=== PATIENT | female | born 1995 | race Caucasian/White ===

== ENCOUNTER 2019-10-02 17:36 | Emergency (ER) | payer OTHER, SELFPAY ==
--- NOTE | ~2019-10-02 | XR_ITS ---
XR finger 3rd LT min 2V DATE: 10/02/2019 18:50 INDICATION: Laceration of distal third digit TECHNIQUE: 3 views COMPARISON: None FINDINGS: No fracture or dislocation, periosteal reaction or bone destruction or abnormal soft tissue calcification or subcutaneous emphysema. Joint spaces are preserved. IMPRESSION: Negative Reviewed, dictated and finalized at location A. IMPRESSION: Negative
[2019-10-02 17:37] VITALS: BP 156/117; PULSE 82; RESP 18; TEMP 36.8; O2SAT 100
--- NOTE | 2019-10-02 18:45 | ED.WOUNDLAC ---
HPI - Wound/Laceration General Chief Complaint: Wound/Laceration Stated Complaint: lac Time Seen by Provider: 10/02/19 18:13 Source: patient Mode of arrival: ambulatory Limitations: no limitations History of Present Illness HPI narrative: This is a 24-year-old female that presents emergency department for laceration to the left third finger sustained just prior to arrival. Reports she accidentally cut herself with a pocket knife. She is up-to-date on tetanus. Denies decreased range of motion or numbness. Related Data Home Medications Medication Instructions Recorded Confirmed No Home Medications 10/02/19 10/02/19 Allergies Allergy/AdvReac Type Severity Reaction Status Date / Time No Known Allergies Allergy Mild Verified 10/02/19 17:40 Review of Systems Review of Systems: Narrative: CONSTITUTIONAL: Denies fever SKIN: Reports laceration NEUROLOGIC: Denies numbness All systems reviewed & are unremarkable except as noted in HPI and below PMFSH Past Medical History Medical History (Updated 10/02/19 @ 20:07 by Sara Salas PA-C) No active medical problems Social History Social History (Updated 10/02/19 @ 18:48 by Sara Salas PA-C) Substance use: never Exam Narrative: Exam Narrative: GENERAL: Well-appearing, well-nourished, and in no acute distress. HEAD: Normocephalic, atraumatic. EYES: EOMI. EXTREMITIES: Normal range of motion. No edema. Left third finger dorsal surface with 2 cm linear laceration into subcutaneous tissue on the radial side SKIN: Warm, dry, no rash. NEURO: No focal deficits. Alert and oriented x3. PSYCH: Normal mood and affect Course Vital Signs Vital signs: Vital Signs Temperature 98.2 F 10/02/19 17:37 Pulse Rate 82 10/02/19 17:37 Respiratory Rate 18 10/02/19 17:37 Blood Pressure 156/117 H 10/02/19 17:37 Pulse Oximetry 100 10/02/19 17:37 Temperature 98.2 F 10/02/19 17:37 Pulse Rate 82 10/02/19 17:37 Respiratory Rate 18 10/02/19 17:37 Blood Pressure 156/117 H 10/02/19 17:37 Pulse Oximetry 100 10/02/19 17:37 Procedures Laceration Laceration 1: Date: 10/02/19 Time: 20:07 Site: hand Side (If applicable): left Size (cm): 2 Description: linear Depth: simple, single layer Local Anesthetic: lidocaine 1% Amount of anesthesia used (mL): 4 Pre-repair: irrigated ====== Skin Level ====== Skin layer closed with: nylon Size (cm): 5-0 Number of sutures: 3 Technique: simple, interrupted ====== Subcutaneous Layer ====== ====== Muscle Layer ====== ====== Tendon Layer ====== MDM - Wound/Laceration MDM Narrative Medical decision making narrative: Patient presents emergency department for laceration to left third finger sustained just prior to arrival. Patient is up-to-date on tetanus. Wound was irrigated and closed with sutures. Left third finger x-rays without acute findings. Patient was educated on wound care. She is to follow-up with primary care doctor. She was given warnings to return to the ER Imaging Data Radiologist's impression: ITS Impressions Finger X-Ray 10/02/19 18:52 IMPRESSION: Negative Critical Care Time Critical Care Time Critical Care Time: No Discharge Plan Discharge Clinical Impression: Laceration Patient Disposition: Home, Self-Care Condition: Stable Instructions: Care For Your Stitches (ED), Laceration (ED) Additional Instructions: Return to the emergency department if you experience fever, redness or swelling of your wound, abnormal drainage from your wound, or any other symptoms that are concerning to you. Apply antibiotic ointment daily. Do not soak the wound. Clean with mild soap and water daily Follow-up with your primary care doctor for suture removal in 10-14 days. Prescriptions: No Action No Home Medications RF: 0 Follow-up/Referr
[2019-10-02 20:17] VITALS: BP 137/84; PULSE 80; RESP 16; TEMP 36.4; O2SAT 99
== END 2019-10-02 20:19 | disposition home or self-care (01) ==
PROVIDERS: Emergency Provider Emergency Medicine
DX: S61.213A Laceration without foreign body of left middle finger without damage to nail, initial encounter (principal); W26.0XXA Contact with knife, initial encounter
CPT/HCPCS: 12001; 73140; 99283